=== PATIENT | male | born 1960 | race Caucasian/White ===

== ENCOUNTER 2019-04-23 09:13 | Observation (INO) | payer BC ==
[2019-04-23] MEDS ORDERED: SODIUM CHLORIDE 0.9% 500 ML 500 ML IV STA (09:37)
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
--- NOTE | 2019-04-23 10:51 | XR ---
EXAMINATION TYPE: XR chest 2V DATE OF EXAM: 04/23/2019 HISTORY: Chest Pain. REFERENCE: NONE. FINDINGS: The lungs are clear. Pleural spaces are clear. Heart size upper limits of normal. IMPRESSION: BORDERLINE CARDIOMEGALY.
[2019-04-23 11:22] LABS: Basophils % (A) 1 %; Eosinophils # (A) 0.1 k/uL (0-0.7); Eosinophils % (A) 3 %; HGB 13.9 gm/dL (13.0-17.5); Lymphocytes # (A) 0.9 k/uL (1.0-4.8); Lymphocytes % (A) 16 %; MCH 30.4 pg (25.0-35.0); MCHC 33.1 g/dL (31.0-37.0); MCV 91.8 fL (80.0-100.0); Mean Platelet Volume 7.2; Monocytes # (A) 0.2 k/uL (0-1.0); Monocytes % (A) 4 %; Neutrophils # (A) 3.9 k/uL (1.3-7.7); Neutrophils % (A) 74 %; Platelet Count 299 k/uL (150-450); RBC 4.58 m/uL (4.30-5.90); RDW 12.5 % (11.5-15.5); WBC 5.3 k/uL (3.8-10.6)
[2019-04-23 11:32] LABS: ALT 18 U/L (21-72); AST 18 U/L (17-59); African American GFR (CKD) >90 (>60 ml/min/1.73 sqM); Albumin 4.4 g/dL (3.5-5.0); Alkaline Phosphatase 87 U/L (38-126); Anion Gap 7 mmol/L; Blood Urea Nitrogen 16 mg/dL (9-20); Calcium 9.5 mg/dL (8.4-10.2); Carbon Dioxide 29 mmol/L (22-30); Chloride 104 mmol/L (98-107); Creatine Kinase 141 U/L (55-170); Glucose 95 mg/dL (74-99); Magnesium 2.1 mg/dL (1.6-2.3); Potassium 3.9 mmol/L (3.5-5.1); Sodium 140 mmol/L (137-145); Total Bilirubin 0.8 mg/dL (0.2-1.3); Total Protein 7.5 g/dL (6.3-8.2)
[2019-04-23 11:37] LABS: D-Dimer 0.22 mg/L FEU (<0.60); Partial Thromboplastin Time 25.7 sec (22.0-30.0); Prothrombin Time 10.3 sec (9.0-12.0)
[2019-04-23] MEDS ORDERED: ASPIRIN 81 MG PO STA (12:31)
[2019-04-23] MEDS ORDERED: HEPARIN SODIUM,PORCINE 5,000 UNIT/ML 1 ML VIAL IV ONE (12:31)
[2019-04-23] MEDS ORDERED: NITROGLYCERIN SL TABS 0.4 MG TAB SUBLINGUAL PRN (12:31)
[2019-04-23] MEDS: HEPARIN SOD,PORK IN 0.45% NACL 25,000 UNIT in 0.45% NACL 1 250ML.BAG IV SCH ×2 (13:01→13:05)
[2019-04-23 14:26] VITALS: BMI 27.3
[2019-04-23] MEDS ORDERED: HEPARIN SODIUM,PORCINE 5,000 UNIT/ML 1 ML VIAL IV PRN (20:20)
[2019-04-23] MEDS: busPIRone HCl 10 MG TAB PO SCH (20:40)
[2019-04-24 03:02] LABS: Cholesterol 203 mg/dL (<200); HDL Cholesterol 74 mg/dL (40-60); LDL Cholesterol,Calculated 115 mg/dL (0-99); Triglycerides 71 mg/dL (<150)
[2019-04-24] MEDS: HYDROCHLOROTHIAZIDE 25 MG TAB PO SCH (09:17)
[2019-04-24] MEDS: busPIRone HCl 10 MG TAB PO SCH ×2 (09:17→20:15)
[2019-04-24] MEDS: ASPIRIN 325 MG TAB PO SCH (09:18)
[2019-04-24] MEDS: MELOXICAM 7.5 MG TAB PO SCH ×2 (09:18→09:21)
[2019-04-24] MEDS: METHIMAZOLE 5 MG TAB PO SCH (09:18)
[2019-04-24] MEDS: LOSARTAN 50 MG TAB PO SCH (09:18)
--- NOTE | 2019-04-24 12:18 | P.PN ---
Progress Note - Text Patient interviewed and examined Exertional symptoms of exhaustion shortness of breath and a burning discomfort off and on probably going on for a month Total floor short 203, LDL 115 HDL 74 triglycerides 71 Normal renal function Normal cardiac enzymes Normal hemoglobin Hypertension increased BMI Likely obstructive sleep apnea Hyperthyroidism on methimazole Intermittently elevated blood pressure readings in the hospital Suggest exercise stress echo tomorrow and further recommendations thereafter
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
[2019-04-24 16:18] LABS: T4, Free (Free Thyroxine) 1.12 ng/dL (0.78-2.19)
[2019-04-25 08:03] VITALS: RESP 18; TEMP 97.5
--- NOTE | 2019-04-25 09:16 | P.PN ---
Subjective Progress Note Date: 04/25/19 Principal diagnosis: Palpitation This is a 58-year-old gentleman with a past medical history significant for hypertension and dyslipidemia was admitted to the hospital with atypical chest discomfort as well as palpitations. He was ruled out for acute coronary event. On follow-up with him today, overall he is feeling better. He denies any chest pain or chest discomfort at this point. Denies any shortness of breath. He is in process of having a stress test and echocardiogram later on today and will follow-up with that. Objective - Vital Signs Vital signs: Vital Signs Temp 97.5 F L 04/25/19 07:59 Pulse 68 04/25/19 07:59 Resp 18 04/25/19 07:59 BP 121/81 04/25/19 07:59 Pulse Ox 98 04/25/19 07:59 Intake & Output 04/24/19 04/25/19 04/25/19 18:59 06:59 18:59 Intake Total 260 0 Balance 260 0 Weight 95.5 kg Intake: IV 20 Heparin Sod,Pork in 0.45% 20 NaCl 25,000 unit In 0.45 % NaCl 1 250ml.bag @ 10.3 UNITS/KG/HR 9.951 mls/hr IV .Q24H [facility] Rx#: [id number] Oral 240 0 Other: Voiding Method Toilet # Voids 1 2 - Constitutional General appearance: Present: no acute distress - Respiratory Respiratory: bilateral: CTA - Cardiovascular Rhythm: regular Heart sounds: normal: S1, S2 Abnormal Heart Sounds: Present: systolic murmur - Labs CBC & Chem 7: 04/23/19 11:07 04/23/19 11:07 Labs: Abnormal Lab Results - Last 24 Hours (Table) 04/24/19 Range/Units 02:33 TSH 5.420 H (0.465-4.680) mIU/L Assessment and Plan Assessment: Assessment #1 atypical chest discomfort #2 palpitation #3 hypertension #4 dyslipidemia Plan #1 follow-up on the stress test #2 follow-up on the echocardiogram
--- NOTE | 2019-04-25 11:07 | P.STRESS ---
- Stress Test Note Stress Test Results/Findings: Exam Performed: Exam Date: Reason for Exam: Height: 6 ft 2 in Weight: 95.5 kg Protocol: Stage: Duration of Exercise: Resting Heart Rate: Resting Blood Pressure: Maximum Achieved Heart Rate: Maximum Achieved Blood Pressure: 85% PMHR: 100% PMHR: METS: Technologist Comment: Stress Test Results/Findings: Baseline heart is 69 beats a minute, Baseline blood pressure 141/66. His mercury baseline 12-lead ECG shows sinus rhythm normal [place] narrow QRS Patient exercised on a Jose protocol for 9 minutes 20 seconds achieving a peak heart rate of 168 beats a minute Mildly hypertensive response to exercise Peak blood pressure 208/77 mmHg and 201/89 mmHg There was no ECG is for ischemia line no arrhythmias were noted No exercise induced SVT [patient has a history of SVT, also was sensitive] Recent 2-D echo images showed normal LV size and systolic function without segmental wall motion abnormalities At peak exercise there was excellent augmentation overall LV contractility without development of any wall motion amenities At recovery regional and global LV systolic function remained normal impression No ECG or echocardiographic evidence for ischemia No exercise induced arrhythmias
--- NOTE | 2019-04-25 11:35 | P.DS ---
Providers Date of admission: 04/23/19 12:31 Expected date of discharge: 04/25/19 Attending physician: Zander Sterling MD Consults: 04/23/19 12:31 Consult Physician Urgent Consulting Provider: Samy Flores Consult Reason/Comments: near syncope, cp Do you want consulting provider notified?: Yes Primary care physician: [facility] Course: Final Diagnoses: (1) Hyperthyroidism Current Visit: Yes Status: Acute Code(s): E05.90 - THYROTOXICOSIS, UNSP WITHOUT THYROTOXIC CRISIS OR STORM SNOMED Code(s): 65578750 (2) Hypertension Current Visit: Yes Status: Acute Code(s): I10 - ESSENTIAL (PRIMARY) HYPERTENSION SNOMED Code(s): 75873461 (3) Chest pain, ruled out for acute coronary event as per cardiology. Current Visit: Yes Status: Acute Code(s): R07.9 - CHEST PAIN, UNSPECIFIED SNOMED Code(s): 96117966 (4) Near syncope Current Visit: Yes Status: Acute Code(s): R55 - SYNCOPE AND COLLAPSE SNOMED Code(s): 711810917 (5) Palpitations Current Visit: Yes Status: Acute Code(s): R00.2 - PALPITATIONS SNOMED Code(s): 01842769 Hospital course:Conner Guzman is a 58 yo M with hx HTN, hyperthyroidism who presented to the ED after experiencing palpitations, malaise, and presyncope yesterday. He states he has been having chest discomfort and dyspnea with yard work for the past 1-2 months which resolved with rest and has discussed this with his PCP. He had an outpaitent stress test scheduled for next week. Pt he was in his yard, repeatedly bending over then standing upright in the sun when he began to feel burning chest pain and palpitations which felt like his heart thumping. He denies pain ever radiating into arm or neck, denies leg swelling, orthopnea. In the ED his vitals were stable and EKG normal. Troponin negative x3. He has not had any further chest pain or palpitations since coming to the hospital. Evaluated by cardiology, acute coronary event ruled out. Underwent stress test reporting no ECG or echocardiographic evidence for ischemia, no exercise induced arrhythmias. Recent Echo reported normal LV size and function without segmental wall motion abnormalities. Tolerated procedure well. Patient will be discharged home pending cardiology clearance and final DC recommendations, in a stable condition with guarded prognosis. Exam: Constitutional: Alert and oriented 3, NAD. CV: Regular rate and rhythm, no murmur, 2+ Lungs: normal respiratory effort, clear throughout Abd: soft, nontender, no organomegaly Neuro: alert and oriented x3, no focal deficits The impression and plan of care has been dictated as directed. : I performed a history and examination of this patient, discussed the same with the dictator. I agree with the dictator's note ,documented as a scribe. Any additional findings or plans will be noted. Time taken: 35 minutes Patient Condition at Discharge: Stable Plan - Discharge Summary Discharge Rx Participant: No New Discharge Prescriptions: New Atorvastatin Calcium [Lipitor] 10 mg PO HS #30 tab Continue Losartan Potassium [Cozaar] 50 mg PO DAILY Hydrochlorothiazide [Hydrodiuril] 25 mg PO DAILY Celecoxib [CeleBREX] 200 mg PO DAILY busPIRone HCl [Buspar] 10 mg PO DAILY Methimazole 7.5 mg PO DAILY Discharge Medication List Losartan Potassium [Cozaar] 50 mg PO DAILY 06/07/15 [History] Celecoxib [CeleBREX] 200 mg PO DAILY 04/23/19 [History] Hydrochlorothiazide [Hydrodiuril] 25 mg PO DAILY 04/23/19 [History] Methimazole 7.5 mg PO DAILY 04/23/19 [History] busPIRone HCl [Buspar] 10 mg PO DAILY 04/23/19 [History] Atorvastatin Calcium [Lipitor] 10 mg PO HS #30 tab 04/25/19 [Rx] Follow up Appointment(s)/Referral(s): Tariq Blanca MD [STAFF PHYSICIAN] - 05/11/19 10:30 am (Follow-up with Dr. Blanca/Jyoti Ennis/Laura Roblero) Nat Sterling DO [Primary Care Provider] - 3 Days Activity/Diet/Wound Care/Special Instructions: Pending cardiology clearance and final DC recommendations TSH 5.42, free T4 1.12, patient will need recheck with PCP Diet: Cardiac Activity: Limited until follow up
[2019-04-25] MEDS: busPIRone HCl 10 MG TAB PO SCH (11:43)
[2019-04-25] MEDS: MELOXICAM 7.5 MG TAB PO SCH ×2 (11:43→11:49)
[2019-04-25] MEDS: HYDROCHLOROTHIAZIDE 25 MG TAB PO SCH (11:43)
[2019-04-25] MEDS: METHIMAZOLE 5 MG TAB PO SCH (11:44)
[2019-04-25] MEDS: LOSARTAN 50 MG TAB PO SCH (11:44)
[2019-04-25] MEDS: ASPIRIN 325 MG TAB PO SCH (11:44)
[2019-04-25 12:13] VITALS: BP 119/82; PULSE 85
--- NOTE | 2019-04-25 13:26 | ECHOS ---
Stress Test Results/Findings: Exam Performed: Stress Echo Exam Date: 04/25/19 Reason for Exam: SOB, Chest Discomfort Height: 6 ft 2 in Weight: 95.5 kg Protocol: Stress Echo Stage: 4 Duration of Exercise: 9 minutes 20 seconds Resting Heart Rate: 69 Resting Blood Pressure: 141/66 Maximum Achieved Heart Rate: 168 Maximum Achieved Blood Pressure: 208/77 85% PMHR: 139 100% PMHR: 163 METS: 10.7 Technologist Comment: Stress Test Results/Findings: Baseline heart is 69 beats a minute, Baseline blood pressure 141/66. His mercury baseline 12-lead ECG shows sinus rhythm normal [place] narrow QRS Patient exercised on a Jose protocol for 9 minutes 20 seconds achieving a peak heart rate of 168 beats a minute Mildly hypertensive response to exercise Peak blood pressure 208/77 mmHg and 201/89 mmHg There was no ECG is for ischemia line no arrhythmias were noted No exercise induced SVT [patient has a history of SVT, also was sensitive] Recent 2-D echo images showed normal LV size and systolic function without segmental wall motion abnormalities At peak exercise there was excellent augmentation overall LV contractility without development of any wall motion amenities At recovery regional and global LV systolic function remained normal impression No ECG or echocardiographic evidence for ischemia No exercise induced arrhythmias MTDD
--- NOTE | 2019-04-25 14:06 | ECHOF ---
Referral Reason:chest pain MEASUREMENTS -------- HEIGHT: 182.9 cm WEIGHT: 95.3 kg BP: IVSd: 1.2 cm (0.6 - 1.1) LVIDd: 4.5 cm (3.9 - 5.3) LVPWd: 1.3 cm (0.6 - 1.1) IVSs: 1.3 cm LVIDs: 3.1 cm LVPWs: 1.6 cm RVIDd: 2.7 cm (< 3.3) LAESV Index (A-L): 20.24 ml/m Ao Diam: 3.0 cm (2.0 - 3.7) LA Diam: 3.9 cm (2.7 - 3.8) AV Cusp: 2.0 cm (1.5 - 2.6) EPSS: 0.5 cm MV E Holden: 0.84 m/s MV DecT: 140 ms MV A Holden: 0.98 m/s MV E/A Ratio: 0.86 RAP: 5.00 mmHg RVSP: 27.03 mmHg MV EF SLOPE: 123.90 mm/s (70 - 150) MV EXCURSION: 15.97 mm (> 18.000) FINDINGS -------- Sinus rhythm. This was a technically difficult study with suboptimal views. The left ventricular size is normal. There is mild concentric left ventricular hypertrophy. Overa ll left ventricular systolic function is normal with, an EF between 55 - 60 %. The right ventricle is normal in size. The left atrial size is normal. Normal LA size by volume 22+/-6 ml/m2. The right atrial size is normal. 1.5mg of Definity was utilized for enhancement of images Interatrial and interventricular septum intact. The aortic valve is trileaflet and appears structurally normal. The mitral valve is normal. The mitral valve leaflets are mildly thickened. Mild mitral regurgita tion is present. Mild tricuspid regurgitation present. Right ventricular systolic pressure is normal at < 35 mmHg. Trace/mild (physiologic) pulmonic regurgitation. The aortic root size is normal. IVC Not well visulized. All pulmonary veins appear normal. There is no pericardial effusion. CONCLUSIONS -------- 1. Sinus rhythm. 2. This was a technically difficult study with suboptimal views. 3. The left ventricular size is normal. 4. There is mild concentric left ventricular hypertrophy. 5. Overall left ventricular systolic function is normal with, an EF between 55 - 60 %. 6. The right ventricle is normal in size. 7. The left atrial size is normal. 8. Normal LA size by volume 22+/-6 ml/m2. 9. The right atrial size is normal. 10. 1.5mg of Definity was utilized for enhancement of images 11. Interatrial and interventricular septum intact. 12. The aortic valve is trileaflet and appears structurally normal. 13. The mitral valve is normal. 14. The mitral valve leaflets are mildly thickened. 15. Mild mitral regurgitation is present. 16. Mild tricuspid regurgitation present. 17. Right ventricular systolic pressure is normal at < 35 mmHg. 18. Trace/mild (physiologic) pulmonic regurgitation. 19. The aortic root size is normal. 20. IVC Not well visulized. 21. All pulmonary veins appear normal. 22. There is no pericardial effusion. MULTIPLE COIL WINDER: Coreen Servin RDCS
== END 2019-04-25 12:35 | disposition home or self-care (01) ==
LOC: EC 09:13 → 3SCARD 12:31
PROVIDERS: ADMIT Family Medicine; ATTEND Family Medicine
DX: R55 Syncope and collapse (principal); R07.89 Other chest pain; I10 Essential (primary) hypertension; E78.5 Hyperlipidemia, unspecified; R00.2 Palpitations; E05.90 Thyrotoxicosis, unspecified without thyrotoxic crisis or storm; I47.1 Supraventricular tachycardia; Z87.891 Personal history of nicotine dependence; Z79.890 Hormone replacement therapy; Z79.1 Long term (current) use of non-steroidal anti-inflammatories (NSAID); Z79.899 Other long term (current) drug therapy
CPT/HCPCS: 96366 ×2; 96376 ×2; 96361; 96365; 99285; 36415; 93005; 93306; 93351; 85379; 84439; 80061; 80053; 84443; 82550; 83690; 83735; 84484; 85025; 85610; 85730 ×2; 71046; G0378 ×3; J1644 ×2; Q9950

== ENCOUNTER → 2019-06-11 | Outpatient (CLI) | payer BC ==
[2019-06-11 16:24] LABS: T4, Free (Free Thyroxine) 1.2 ng/dL (0.80-1.80)
== END | disposition home or self-care (01) ==
LOC: LABWHC1 09:45
PROVIDERS: ATTEND Internal Medicine Endocrinology, Diabetes & Metabolism
DX: E05.00 Thyrotoxicosis with diffuse goiter without thyrotoxic crisis or storm (principal)
CPT/HCPCS: 36415; 84439; 84443; 84480

== ENCOUNTER → 2019-07-26 | Outpatient (CLI) | payer BC ==
--- NOTE | 2019-07-26 21:04 | CONS ---
CONSULTATION REASON FOR CONSULTATION: Sleep apnea. This is a 58-year-old male patient who works locally at [employer] who is coming in to be evaluated for sleep apnea. He is accompanied by his . He goes to bed around 9 p.m., wakes up at 5:45 a.m. in the morning. His has noted snoring and she has noted that he occasionally stops breathing at night. He has been increasingly fatigued and sleepy as noted by his . He is waking up tired during the day. The patient himself does not think that he is that symptomatic from his disease. However, his seems to be much more concerned. No recent weight gain or weight loss. The patient feels better if he sleeps on his side. He does not take any naps during the day. He wakes up somewhere between 1 and 3 times in the middle of the night and he gets out of bed once to use the bathroom. His weight is up by around 30 pounds over the past 10 years. No other major medical problems or comorbidities. He is quite anxious and is very worried about his job. Sometimes he wakes up in the middle of the night thinking about his job. He drinks beer, mainly on the weekends; he drinks around 6 to 8 beers mainly on the weekends, Thursday and Thursday; none during weekdays. No history of smoking. No family history of obstructive sleep apnea. PAST MEDICAL HISTORY: 1. Osteoarthritis. 2. Hyperlipidemia. 3. Chronic anxiety. 4. Hypertension. SURGICAL HISTORY: Surgical history includes vasectomy. DRUG ALLERGIES: PENICILLINS. OUTPATIENT MEDICATION LIST: Outpatient medication list includes: 1. Celebrex 200 mg p.o. daily. 2. Lipitor 10 mg p.o. daily. 3. Methimazole 5 mg half tablet a day. 4. BuSpar 10 mg p.o. daily. 5. Losartan 50 mg p.o. daily. 6. Hydrochlorothiazide 25 mg p.o. daily. 7. Vitamin D 50,000 units daily. 8. Daniel aspirin 81 mg p.o. daily. SOCIAL HISTORY: The patient is a nonsmoker. Drinks beer, mainly on weekends; a total of 12-pack beer over the weekend. No history of substance abuse. No history of IV drugs. FAMILY HISTORY: Negative for sleep apnea. The patient's children are healthy. Blood pressure and heart disease also run in the family. REVIEW OF SYSTEMS: Fourteen-point review of systems was done. Positive findings were all mentioned above in the history of present illness. PHYSICAL EXAMINATION: CURRENT VITALS: BP is 132/72, pulse 63, respirations 16, temperature 97.9, saturation 99% on room air. Shelby score is 14. BMI is 29.0. Height is 6 feet 1 inch, weight 217. Neck size 17 inches. GENERAL APPEARANCE: Calm, comfortable. HEAD: Atraumatic, normocephalic. NECK: Supple. There is no JVD. No goiter or neck masses. Mallampati class IV. LUNGS: Clear to auscultation. HEART: Heart sounds are regular rate and rhythm. Normal S1, S2. No S3, S4. No murmurs. ABDOMEN: Soft, nontender. No organomegaly. EXTREMITIES: No edema. No cyanosis or clubbing. NEUROLOGIC: Awake and alert x3. There are no focal neurological deficits. PSYCHIATRIC: Negative for anxiety or depression. IMPRESSION: 1. Mild hypersomnia; Shelby score of 14. Consider obstructive sleep apnea based on his history of snoring and questionable witnessed apneas. 2. Hypertension. 3. Hyperlipidemia. 4. Chronic anxiety, maintained on BuSpar. 5. Osteoarthritis. 6. Hyperthyroidism, currently on methimazole. PLAN: 1. Avoid alcohol drinking in excess. 2. Optimize sleep hygiene measures. 3. Encourage weight loss. 4. Proceed with a home sleep study to investigate this patient for sleep apnea and decide accordingly. Anatomically the patient is not obese; however, he has an overbite and he has significant crowding of the posterior pharynx with a Mallampati class IV. Further recommendations are to follow based on the results of the home sleep study. MMODL / IJN: [id number] /
== END | disposition home or self-care (01) ==
LOC: SLEEP 15:47
PROVIDERS: ATTEND Internal Medicine Critical Care Medicine
DX: G47.10 Hypersomnia, unspecified (principal); E78.5 Hyperlipidemia, unspecified; I10 Essential (primary) hypertension; F41.9 Anxiety disorder, unspecified; M19.90 Unspecified osteoarthritis, unspecified site; E05.90 Thyrotoxicosis, unspecified without thyrotoxic crisis or storm; Z79.82 Long term (current) use of aspirin
CPT/HCPCS: 99211

== ENCOUNTER → 2019-08-30 | Outpatient (CLI) | payer BC ==
--- NOTE | 2019-08-30 07:57 | US ---
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 abn labs, on meds for four year s, no symptoms GLAND SIZE: Right Lobe: 5.2 x 2.1 x 2.0 cm Overall Parenchyma: heterogenous Left Lobe: 5.2 x 1.8 x 1.9 cm Overall Parenchyma: heterogeneous Isthmus Thickness: 0.6 cm NODULES RIGHT: # of nodules measured on right: 0 LEFT: # of nodules measured on left: 0 ISTHMUS: # of nodules measured in the isthmus: 0 Bilateral neck scanned, no evidence of lymphadenopathy. IMPRESSION: Thyromegaly correlate for thyroiditis. No sizable thyroid nodule identified.
[2019-08-30 08:13] LABS: T4, Free (Free Thyroxine) 1.2 ng/dL (0.78-2.19)
== END | disposition home or self-care (01) ==
LOC: RADUSWWP 06:59
PROVIDERS: ATTEND Internal Medicine Endocrinology, Diabetes & Metabolism
DX: E01.0 Iodine-deficiency related diffuse (endemic) goiter (principal); E05.00 Thyrotoxicosis with diffuse goiter without thyrotoxic crisis or storm
CPT/HCPCS: 36415; 76536; 84439; 84443; 84480

== ENCOUNTER → 2019-10-22 | Outpatient (CLI) | payer BC ==
[2019-10-22 17:20] LABS: T4, Free (Free Thyroxine) 1.6 ng/dL (0.80-1.80)
== END | disposition home or self-care (01) ==
LOC: LABWHC1 08:41
PROVIDERS: ATTEND Internal Medicine Endocrinology, Diabetes & Metabolism
DX: E05.90 Thyrotoxicosis, unspecified without thyrotoxic crisis or storm (principal)
CPT/HCPCS: 36415; 84439; 84443; 84480

== ENCOUNTER → 2020-02-28 | Outpatient (CLI) | payer BC ==
[2020-02-28 13:15] LABS: T4, Free (Free Thyroxine) 1.5 ng/dL (0.80-1.80)
== END | disposition home or self-care (01) ==
LOC: LABWHC1 07:12
PROVIDERS: ATTEND Internal Medicine Endocrinology, Diabetes & Metabolism
DX: E05.00 Thyrotoxicosis with diffuse goiter without thyrotoxic crisis or storm (principal)
CPT/HCPCS: 36415; 84439; 84443; 84481

== ENCOUNTER 2020-10-18 10:36 | Day surgery (SDC) | payer BC ==
[2020-10-17 09:10] VITALS: BMI 28.3
[~2020-10-18 10:36] MED LIST: LACTATED RINGERS 1,000 ML IV SCH; LIDOCAINE 1% (10MG/ML) FOR IV START INTRADERMA PRN
[2020-10-18 12:03] VITALS: RESP 16
[2020-10-18 12:06] LABS: Glucose,Whole Blood 89 mg/dL (75-99)
[2020-10-18] MEDS ORDERED: PROPOFOL 10 MG/ML 20 ML VIAL IV ONE (12:31)
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
--- NOTE | 2020-10-18 12:50 | P.OP ---
Date of Procedure: 10/18/20 Preoperative Diagnosis: Screening colonoscopy Postoperative Diagnosis: Colonoscopy Procedure(s) Performed: Colonoscopy Anesthesia: MAC Surgeon: Tyler Sheehan Pathology: none sent Condition: stable Disposition: PACU Description of Procedure: PROCEDURE: The patient was placed on the endoscopy table in the lateral position. Digital rectal examination was performed which revealed no abnormalities. The prostate was symmetrical without nodules. Flexible colonoscope was then placed in the patient's anus and passed throughout the entire colon. The ileocecal valve was visualized. The cecum, ascending, transverse, descending and sigmoid colon were normal. The rectum was normal as well. There were no masses, polyps or diverticula noted in the entire colon. SUMMARY OF FINDINGS: Normal colonoscopy.
[2020-10-18 13:34] VITALS: BP 180/90; PULSE 80
== END 2020-10-18 13:45 | disposition home or self-care (01) ==
LOC: ORWHC2ENDO 10:36
PROVIDERS: ATTEND Surgery
DX: Z12.11 Encounter for screening for malignant neoplasm of colon (principal); I10 Essential (primary) hypertension; E78.5 Hyperlipidemia, unspecified; Z88.0 Allergy status to penicillin; Z98.890 Other specified postprocedural states; Z87.891 Personal history of nicotine dependence; Z80.9 Family history of malignant neoplasm, unspecified; Z79.82 Long term (current) use of aspirin; Z79.899 Other long term (current) drug therapy
CPT/HCPCS: J2704; G0121

== ENCOUNTER → 2022-09-20 | Outpatient (CLI) | payer BC ==
--- NOTE | 2022-09-20 11:13 | MR ---
EXAMINATION TYPE: MR brain wo/w con DATE OF EXAM: 09/20/2022 11:04 AM CLINICAL INDICATION:Male, 61 years old with history of H53.9 visual disturbance; COMPARISON: None TECHNIQUE: Multi planar, multi sequence imaging was performed through the brain including: T1, T2, In version recovery, susceptibility weighted imaging and gradient echo imaging and Diffusion weighted im aging. The patient was then given intravenous contrast and multi planar, T1 fat-saturation images wer e obtained. IV Contrast: 10 cc Gadavist FINDINGS: The pickering-white junctions, ventricular system, basal cisterns appear unremarkable. Diffusion-weighted imaging shows no evidence of restricted diffusion to suggest acute/subacute infarct. Intracranial art erial flow voids are maintained. Midline structures show no abnormality. Scattered foci of high T2 si gnal intensity are seen within the periventricular white matter. The susceptibility weighted images d o not reveal any evidence for micro-hemorrhage. After administration of gadolinium, no abnormal enhan cement is seen. The bone marrow signal is within normal limits. Paranasal sinuses and mastoid air cells: Mild scattered paranasal sinus disease. Visualized orbits: Orbital contents are intact. IMPRESSION: 1. No evidence of intracranial mass, acute/subacute infarct, or abnormal enhancement. 2. Nonspecific white matter changes, likely related to small vessel ischemic disease
== END | disposition home or self-care (01) ==
LOC: RADMRIMAIN 09:48
PROVIDERS: ATTEND Physician Assistant Medical
DX: R90.82 White matter disease, unspecified (principal); H53.9 Unspecified visual disturbance; G43.109 Migraine with aura, not intractable, without status migrainosus
CPT/HCPCS: 70553; A9585

== ENCOUNTER → 2023-07-30 | Outpatient (CLI) | payer BC ==
--- NOTE | 2023-07-30 15:13 | MR ---
EXAMINATION TYPE: MR lumbar spine wo con DATE OF EXAM: 07/30/2023 COMPARISON: None HISTORY: Low back pain in center and left side TECHNIQUE: Multiplanar, multisequence images of the lumbar spine were acquired without IV contrast. FINDINGS: Lumbar segments are intact. No paraspinal masses are identified. Conus medullaris has a normal appe arance. Levocurvature of the lumbar spine with apex at L2. Type II Modic changes involving the inferi or endplates of T12 and L4 and superior endplates of L1 and L5. Sacralization of L5 vertebral body. M ultilevel disc desiccation. T12-L1: Broad-based disc bulge without significant central canal stenosis. Bilateral facet arthropath y. The neural foramen are patent bilaterally. L1-L2: Right paracentral disc protrusion superimposed upon a broad-based disc bulge. There is mild ef facement of the anterior thecal sac. Bilateral facet arthropathy. Moderate right neural foraminal ricco nosis. The left neural foramen is patent. L2-L3: Broad-based disc bulge with bilateral facet arthropathy and bilateral ligament of flavum buckl ing resulting in mild central canal stenosis. Moderate right and mild left neural foraminal stenosis. L3-L4: Broad-based disc bulge with bilateral facet arthropathy and bilateral ligament of flavum buckl ing resulting in mild central canal stenosis. Mild right and severe left neural foraminal stenosis. L4-L5: Broad-based disc bulge with bilateral facet arthropathy and bilateral ligament of flavum buckl ing resulting in moderate central canal stenosis. Moderate to severe bilateral neural foraminal steno sis. L5-S1: No disc herniation. No significant central canal or neural foraminal stenosis. IMPRESSION: 1. L1-L2 right paracentral disc protrusion with broad-based disc bulge resulting in mild central carlos l stenosis. 2. Multilevel degenerative disc disease and facet arthropathy as described above. This is most promin ent at L4-L5 with moderate central canal stenosis. 3. Levocurvature of the lumbar spine.
== END | disposition home or self-care (01) ==
LOC: RADMRIMAIN 14:26
PROVIDERS: ATTEND Family Medicine
DX: M51.26 Other intervertebral disc displacement, lumbar region (principal); M48.061 Spinal stenosis, lumbar region without neurogenic claudication; M51.36 Other intervertebral disc degeneration, lumbar region; M47.816 Spondylosis without myelopathy or radiculopathy, lumbar region
CPT/HCPCS: 72148